=== PATIENT | male | born 1925 | race Caucasian/White ===

== ENCOUNTER → 2016-03-06 | Outpatient (CLI) | payer MEDICARE ==
[~2016-03-06] MED LIST: COUM5TAB PO; DIGO.125 PO; DILT300C PO; GLIM2TAB PO; GLUCTAB PO; HYDR12.56 PO; LORT5TAB PO; METF-324 PO; OMEP20CA5 PO; PRIN5TAB PO; SIMV80TA OR
[2016-03-06 12:52] LABS: INTERNATIONAL NORMALIZED RATIO 2.1 RATIO; PROTHROMBIN TIME - PATIENT 23.5 SEC (9.8-11.6)
== END ==
LOC: OLAB 09:22
PROVIDERS: ATTEND Family Medicine
DX: I48.2 Chronic atrial fibrillation (principal); I25.9 Chronic ischemic heart disease, unspecified; E11.9 Type 2 diabetes mellitus without complications
CPT/HCPCS: 36415; 82947; 85610

== ENCOUNTER → 2016-03-25 | Outpatient (CLI) | payer MEDICARE ==
[2016-03-25 12:58] LABS: INTERNATIONAL NORMALIZED RATIO 2.2 RATIO; PROTHROMBIN TIME - PATIENT 25.5 SEC (9.8-11.6)
== END ==
LOC: OLAB 11:46
PROVIDERS: ATTEND Family Medicine
DX: I25.9 Chronic ischemic heart disease, unspecified (principal)
CPT/HCPCS: 36415; 85610